=== PATIENT | female | born 1995 | race Hispanic/Latino ===

== ENCOUNTER 2019-08-03 13:33 | Emergency (ER) | payer OTHER ==
[2019-08-03 13:40] VITALS: BP 116/71
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
[2019-08-03 15:33] LABS: Bacteria,Urine 1+ /HPF (Negative); Bilirubin,Urine NEG (Negative); Blood,Urine NEG (Negative); Color,Urine Straw (Yellow); Protein,Urine <15 mg/dL mg/dL (Negative); Urobilinogen,Urine < 2.0 mg/dL (<2.0)
[2019-08-03 15:37] LABS: HCG Qualitative,Urine Negative (Negative)
[2019-08-03] MEDS ORDERED: CYCLOBENZAPRINE 10 MG TAB PO ONE (16:01)
[2019-08-03] MEDS ORDERED: IBUPROFEN 800 MG TAB PO ONE (16:01)
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
== END 2019-08-03 17:36 | disposition left against medical advice (07) ==
LOC: ED 13:33
DX: M54.5 Low back pain (principal); M54.2 Cervicalgia; V43.52XA Car driver injured in collision with other type car in traffic accident, initial encounter; Y93.89 Activity, other specified; Y92.410 Unspecified street and highway as the place of occurrence of the external cause; Y99.8 Other external cause status
CPT/HCPCS: 72040; 81001; 81025